=== PATIENT | male | born 1960 | race African-American/Black ===

== ENCOUNTER 2024-03-21 20:30 | Emergency (ER) | payer MEDICARE, MEDICAID ==
[~2024-03-21] VITALS: Ht 193 cm; Wt 82.0 kg
[2024-03-21 20:43] VITALS: O2SAT 99
[2024-03-21] MEDS ORDERED: NAPR-1176 MT (23:01)
[2024-03-21] MEDS ORDERED: TOPUD PO (23:01)
[2024-03-21 23:11] VITALS: BP 137/78; PULSE 87; RESP 18; TEMP 98.4
== END 2024-03-21 23:21 | disposition home or self-care (01) ==
LOC: ER 20:30
DX: K40.90 Unilateral inguinal hernia, without obstruction or gangrene, not specified as recurrent (principal)
CPT/HCPCS: 99282